=== PATIENT | male | born 1975 | race Caucasian/White ===

== ENCOUNTER 2023-09-29 12:20 | Emergency (ER) | payer OTHER ==
[2023-09-29 12:28] VITALS: BP 139/75; PULSE 85; RESP 18; TEMP 99.5; BMI 27.4
== END 2023-09-29 15:18 | disposition home or self-care (01) ==
LOC: JERFT 12:20
DX: R05.9 Cough, unspecified (principal); R50.9 Fever, unspecified; M79.10 Myalgia, unspecified site; R53.81 Other malaise; J39.2 Other diseases of pharynx; J10.1 Influenza due to other identified influenza virus with other respiratory manifestations; Z20.822 Contact with and (suspected) exposure to COVID-19
CPT/HCPCS: 0241U-QW; 99283-25

== ENCOUNTER 2025-03-28 22:56 | Emergency (ER) | payer OTHER ==
[2025-03-28 23:15] VITALS: BP 156/91; PULSE 74; RESP 18; TEMP 98.1; BMI 26.6
[2025-03-28] MEDS ORDERED: ACETAMINOPHEN 325 MG TABLET (FP) ONE (23:43)
[2025-03-28] MEDS: ACETAMINOPHEN 500 MG TABLET (FP) PO ONE (23:45)
[2025-03-29] MEDS ORDERED: AMOXICILLIN 250 MG CAPSULE ONE (00:29)
[2025-03-29] MEDS: AMOXICILLIN 500 MG CAPSULE (FP) PO ONE (00:30)
[2025-03-29 01:16] LABS: HCV DIAGNOSTIC IN-HOUSE W/RFLX NON-REACTIVE (NONREACTIVE)
[2025-03-30 23:24] LABS: HIV INTERPRETATION NEGATIVE (NEGATIVE)
== END 2025-03-29 00:34 | disposition home or self-care (01) ==
LOC: JER 22:56
DX: H66.91 Otitis media, unspecified, right ear (principal); R50.9 Fever, unspecified; R09.81 Nasal congestion; R05.9 Cough, unspecified; H92.01 Otalgia, right ear
CPT/HCPCS: 0241U-QW; 36415; 86803; 87389; 99283-25